=== PATIENT | male | born 1990 | race Caucasian/White ===

== ENCOUNTER 2016-12-15 23:40 | Emergency (ER) | payer MEDICAID ==
[2016-12-16] MEDS ORDERED: AMOXICILLIN/POTASSIUM CLAV 875MG/125MG TABLET PO ONE (00:02)
[2016-12-16] MEDS ORDERED: HYDROCODONE/APAP 5/325MG TABLET PO ONE (00:02)
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
== END 2016-12-16 00:24 | disposition home or self-care (01) ==
LOC: ER 23:40
DX: L03.316 Cellulitis of umbilicus (principal)
CPT/HCPCS: 99282

== ENCOUNTER 2017-07-21 22:03 | Emergency (ER) | payer SELFPAY ==
[2017-07-21] MEDS: AMOXICILLIN/POTASSIUM CLAV 875MG/125MG TABLET PO ONE (22:36)
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
== END 2017-07-21 23:24 | disposition home or self-care (01) ==
LOC: ER 22:03
DX: L03.316 Cellulitis of umbilicus (principal); F17.210 Nicotine dependence, cigarettes, uncomplicated
CPT/HCPCS: 99282

== ENCOUNTER 2017-10-17 19:26 | Emergency (ER) | payer SELFPAY ==
[2017-10-17] MEDS ORDERED: 0.9 % SODIUM CHLORIDE 1,000 ML BAG IV ONE (19:54)
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
[2017-10-17 20:15] LABS: BASO % 0.2 % (0-6); EOS % 3.4 % (0-6); GRAN % 58.9 % (47-80); LYMPH % 31.2 % (16-45); MEAN CELL VOLUME 83.2 fl (81-97); MEAN CORPUSCULAR HGB CONC 35.4 g/dl (32-36); MEAN PLATELET VOLUME 8.7 fl (7.4-10.4); MONO % 6.3 % (0-9); PLATELET COUNT 248 K/uL (130-400); RED BLOOD COUNT 5.77 M/uL (4.40-5.70); RED CELL DISTRIBUTION WIDTH 12.4 % (11.5-14.5); WHITE BLOOD COUNT W/O DIFF 9.8 K/uL (4.2-12.2)
[2017-10-17 20:16] LABS: MEAN CORPUSCULAR HEMOGLOBIN 29.4 pg (27-33); URINE APPEARANCE CLEAR; URINE BILIRUBIN NEGATIVE (NEGATIVE); URINE BLOOD NEGATIVE (NEGATIVE); URINE COLOR YELLOW; URINE GLUCOSE (UA) NEGATIVE (NEGATIVE); URINE KETONE NEGATIVE (NEGATIVE); URINE LEUKOCYTE ESTERASE NEGATIVE (NEGATIVE); URINE NITRITE NEGATIVE (NEGATIVE); URINE PROTEIN NEGATIVE (NEGATIVE); URINE UROBILINOGEN 0.2 E.U./dL (0.20 - 1.00)
[2017-10-17 20:20] LABS: AMPHETAMINE SCREEN URINE NOT DETECTED; BARBITURATE SCREEN URINE NOT DETECTED; BENZODIAZEPINE SCREEN URINE NOT DETECTED; COCAINE SCREEN URINE NOT DETECTED; METHADONE SCREEN URINE NOT DETECTED; METHAMPHETAMINE SCREEN NOT DETECTED; OPIATE SCREEN URINE NOT DETECTED; OXYCODONE SCREEN URINE NOT DETECTED; PHENCYCLIDINE SCREEN URINE NOT DETECTED; PROPOXYPHENE SCREEN URINE NOT DETECTED; THC SCREEN URINE NOT DETECTED; TRICYCLIC ANTIDEPRESSANT SCRN NOT DETECTED
[2017-10-17 20:31] LABS: ALB/GLOB RATIO 1.8 (1.1-1.8); ALBUMIN 4.1 g/dL (4.0-5.0); ALKALINE PHOSPHATASE 74 U/L (40-129); ALT/SGPT 56 U/L (<41); AST/SGOT 32 U/L (10.0-50.0); BLOOD UREA NITROGEN 12 mg/dL (6-20); CREATININE 0.7 mg/dL (0.7-1.2); EST GLOMERULAR FILTRATION RATE > 60 mL/min; GLUCOSE,RANDOM 97 mg/dL (74-109); TOTAL PROTEIN 6.4 g/dL (6.6-8.7)
== END 2017-10-17 20:46 | disposition home or self-care (01) ==
LOC: ER 19:26
DX: R42 Dizziness and giddiness (principal); F17.210 Nicotine dependence, cigarettes, uncomplicated
CPT/HCPCS: 80053; 80305; 81003; 85025; 93005; 93010; 99284; J7030

== ENCOUNTER 2018-01-14 19:25 | Emergency (ER) | payer SELFPAY ==
[2018-01-14] MEDS ORDERED: CLINDAMYCIN 150 MG CAP PO ONE (20:35)
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
== END 2018-01-14 20:43 | disposition home or self-care (01) ==
LOC: ER 19:25
DX: L02.211 Cutaneous abscess of abdominal wall (principal); F17.210 Nicotine dependence, cigarettes, uncomplicated
CPT/HCPCS: 10060; 99284